=== PATIENT | male | born 1950 | race Caucasian/White ===

== ENCOUNTER 2016-02-15 11:35 | Observation (INO) | payer BC ==
[2016-02-15] MEDS ORDERED: Ondansetron 4 MG/2 ML SDV IV PRN (11:58)
[2016-02-15] MEDS ORDERED: Sodium Chloride 0.9% 10 ML Syringe FLUSH PRN (11:58)
[2016-02-15] MEDS ORDERED: Acetaminophen 325 MG Tab PO PRN (11:58)
[2016-02-15] MEDS ORDERED: Morphine 2 MG/ML Syringe IVPUSH PRN (11:58)
--- NOTE | 2016-02-15 12:09 | PCM.HP ---
H&P History of Present Illness - General Date of Service: 02/15/16 Admit Problem/Dx: Admission Diagnosis/Problem Admission Diagnosis/Problem Chest discomfort nstemi Source of Information: Patient, Provider History Limitations: Reports: No limitations - History of Present Illness Initial Comments - Free Text/Narative: Chief complaint: Chest pain and dyspnea. Present illness: Patient presented to [facility] this morning in urgent care clinic for history of chest pain with exertion and dyspnea on exertion for past three days. Minimal symptoms at rest. No history of any angina or coronary disease in the past. Doesn't history of hypertension and hyperlipidemia. No diabetes. Does not smoke. Family history of coronary disease in father. Medications: See Pap, Diovan HCT, Lipitor, Norvasc, aspirin, fish oil, when necessary Viagra. Intolerance to ventura inhibitors which cause cough. Review of systems: Denies fever denies headache denies any neurologic symptoms denies abdominal pain denies nausea denies vomiting denies dysuria denies peripheral edema. Physical exam: Pulse 90, blood pressure 135/85, afebrile. Alert oriented no acute distress heart and lungs clear to auscultation abdomen soft nontender extremity is warm well perfused without edema. He shows sinus rhythm at 100. There are T-wave inversions inferiorly with downsloping ST segments. Possible anterior septal Q waves. Troponin is 0.268. Assessment and plan: Non-STEMI. [facility] does not have any beds open for immediate transfer. He is currently stable and minimally symptomatic. We will admit for observation on telemetry here. We'll do a serial troponin. We will do bolus Lovenox, Plavix, Lipitor and 5 mg IV dose Toprol. Plan on transfer to [facility] later today with cardiac bed available. H&P Review of Systems - Review of Systems: Review Of Systems: See Below Exam - Exam Exam: See Below - Vital Signs Vital Signs: Last Vital Signs Temp Pulse Resp BP Pulse Ox 98 02/15/16 11:58 *Q Meaningful Use (ADM) - VTE *Q VTE Criteria *Q: - Stroke *Q Stroke Criteria *Q: - AMI *Q AMI Criteria *Q: Problem List Initiated/Reviewed/Updated: Yes Orders Last 24hrs: Active Orders 24 hr Category Date Time Status Admission Status [Patient Status] [ADT] Routine ADT 02/15/16 11:44 Active Patient Status [ADT] Routine ADT 02/15/16 11:58 Ordered Cardiac Monitoring [RC] CONTINUOUS Care 02/15/16 11:59 Ordered Oxygen Therapy [RC] PRN Care 02/15/16 11:58 Ordered Up With Assistance [RC] ASDIRECTED Care 02/15/16 11:58 Ordered VTE/DVT Education [RC] PER UNIT ROUTINE Care 02/15/16 11:58 Ordered Vital Signs [RC] Q4H Care 02/15/16 11:58 Ordered Clear Liquid Diet [DIET] Diet 02/15/16 Lunch Ordered TROPONIN I [CHEM] Timed Lab 02/15/16 14:00 Ordered Acetaminophen [Tylenol] Med 02/15/16 11:58 Ordered 650 mg PO Q4H PRN Clopidogrel [Plavix] Med 02/15/16 12:01 Once 300 mg PO ONETIME ONE Enoxaparin [Lovenox] Med 02/15/16 12:01 Once 100 mg SUBCUT ONETIME ONE Metoprolol Tartrate [Lopressor] Med 02/15/16 12:01 Once 5 mg IVPUSH ONETIME ONE Morphine Med 02/15/16 11:58 Ordered 2 mg IVPUSH Q2H PRN Ondansetron [Zofran] Med 02/15/16 11:58 Ordered 4 mg IV Q6H PRN Sodium Chloride 0.9% [Saline Flush] Med 02/15/16 11:58 Ordered 10 ml FLUSH ASDIRECTED PRN atorvaSTATin [Lipitor] Med 02/15/16 12:01 Once 80 mg PO ONETIME ONE Peripheral IV Insertion Adult [OM.PC] Routine Oth 02/15/16 11:58 Ordered Saline Lock Insert [OM.PC] Routine Oth 02/15/16 11:58 Ordered Resuscitation Status Routine Resus Stat 02/15/16 11:58 Ordered Medication Orders Acetaminophen (Tylenol) 650 mg PO Q4H PRN PRN Reason: Pain (Mild 1-3)/fever Atorvastatin Calcium (Lipitor) 80 mg PO ONETIME ONE Stop: 02/15/16 12:02 Clopidogrel Bisulfate (Plavix) 300 mg PO ONETIME ONE Stop: 02/15/16 12:02 Enoxaparin Sodium (Lovenox) 100 mg SUBCUT ONETIME ONE Stop: 02/15/16 12:02 Metoprolol Tartrate (Lopressor) 5 mg IVPUSH ONETIME ONE Stop: 02/15/16 12:02 Morphine Sulfate (Morphine) 2 mg IVPUSH Q2H PRN PRN Reason: Pain (severe 7-10) Ondansetron HCl (Zofran) 4 mg IV Q6H PRN PRN Reason: Nausea/Vomiting Sodium Chloride (Saline Flush) 10 ml FLUSH ASDIRECTED PRN PRN Reason: Keep Vein Open
[2016-02-15] MEDS ORDERED: atorvaSTATin 40 MG Tab PO ONE (12:30)
[2016-02-15] MEDS ORDERED: Clopidogrel 75 MG Tab PO ONE (12:30)
[2016-02-15] MEDS ORDERED: Metoprolol Tartrate 5 MG/5 ML SDV IVPUSH ONE ×2 (12:30→15:14)
[2016-02-15] MEDS ORDERED: Enoxaparin 100 MG/1 ML Syringe SUBCUT ONE (13:00)
[2016-02-15] MEDS ORDERED: Aspirin 81 MG Tab.EC PO SCH (15:15)
[2016-02-15] MEDS ORDERED: Metoprolol Tartrate 25 MG Tab PO ONE (15:28)
--- NOTE | 2016-02-15 15:28 | PCM.DCSUM1 ---
Discharge Summary - Discharge Data Discharge Date: 02/15/16 Discharge Disposition: DC/Tfer to Acute Hospital 02 Condition: Fair - Discharge Plan Home Medications: Home Meds Aspirin [Halfprin] 81 mg PO BRK 02/15/16 [History] Multivitamin [Multivitamins] 1 each PO DAILY 02/15/16 [History] [place]-3/DHA/Epa/Fish Oil [[place]-3 Fish Oil 1,000 MG Sfgl] 1,000 mg PO BID [History] Sildenafil [Viagra] 100 mg PO BEDTIME PRN 02/15/16 [History] Valsartan/Hydrochlorothiazide [Valsartan-Hctz 320-25 mg Tab] 1 tab PO DAILY 11/21 [History] amLODIPine [Norvasc] 5 mg PO DAILY 02/15/16 [History] atorvaSTATin [Lipitor] 40 mg PO BEDTIME 02/15/16 [History] - Discharge Summary/Plan Comment DC Time >30 min.: Yes (45min speaking with specialist and patient and RN) Discharge Summary/Plan Comment: Patient presented to urgent care clinic earlier this morning complaining of chest pain or shortness of breath with exertion. Started about three days ago. This morning had worse spell while working. Last about 30 minutes. Crushing pain across his chest. Minimal asymptomatic currently but does describe a slight twinge in his left chest. No dyspnea neck arm pain or diaphoresis currently. He does not have any known coronary disease no previous EKG for comparison. His cardiac risk factors include hypertension hyperlipidemia obesity and sleep apnea. He has not had any diabetes in the past. He has not had any stress testing in the past. Family history positive for coronary disease in father around patient's current age. Patient has history of chewing but not smoking tobacco in the past. On arrival to clinic blood pressure 140/74 pulse 97 temperature 7.7 oxygen saturation 95% Or two and oriented male no acute distress heart regular rate and rhythm no murmurs or gallops lungs clear extremity is warm well perfused without edema. Sinus rhythm borderline tachycardia T wave inversions inferiorly with some downsloping ST segments. Initial troponin 0.26, repeat level IV hours later was 0.61 patient's blood pressure little bit elevated on the floor given 5 mg IV metoprolol 2. He was given 100 mg subcu Lovenox at 1 PM today along with 80 mg Lipitor and 300 mg Plavix. Assessment and plan: Non-STEMI. I don't think his ischemia/and infarction is still ongoing, his symptoms are currently minimal and seem non-anginal given the spell that was more severe he describes this morning. KLAUS score is 3-4, he has moderately higher risk. He will be transferred to [place] for internal medicine evaluation and serial monitoring. Probable left heart cath next 24 hours, sooner if acutely symptomatic again. Toprol 25mg PO given prior do d/c. - Patient Data Vitals - Most Recent: Last Vital Signs Temp 36.7 C 02/15/16 13:42 Pulse 72 02/15/16 13:42 Resp 20 02/15/16 13:42 BP 162/88 H 02/15/16 13:42 Pulse Ox 96 02/15/16 13:42 Weight - Most Recent: 102.058 kg Lab Results - Last 24 hrs: Laboratory Results - last 24 hr 02/15/16 Range/Units 14:00 Troponin I 0.610 H* (<=0.056) ng/mL Med Orders - Current: Current Medications Acetaminophen (Tylenol) 650 mg PO Q4H PRN PRN Reason: Pain (Mild 1-3)/fever Amlodipine Besylate (Norvasc) 5 mg PO DAILY HANNA Aspirin (Halfprin) 81 mg PO BRK HANNA Atorvastatin Calcium (Lipitor) 40 mg PO BEDTIME HANNA Morphine Sulfate (Morphine) 2 mg IVPUSH Q2H PRN PRN Reason: Pain (severe 7-10) Non-Formulary Medication ([place]-3/Dha/Epa/Fish Oil [[place]-3 Fish Oil 1,000 Mg Sfgl]) 1,000 mg PO BID HANNA Non-Formulary Medication (Valsartan/Hydrochlorothiazide [Valsartan-Hctz 320-25 Mg Tab]) 1 tab PO DAILY HANNA Ondansetron HCl (Zofran) 4 mg IV Q6H PRN PRN Reason: Nausea/Vomiting Sodium Chloride (Saline Flush) 10 ml FLUSH ASDIRECTED PRN PRN Reason: Keep Vein Open Discontinued Medications Atorvastatin Calcium (Lipitor) 80 mg PO ONETIME ONE Stop: 02/15/16 12:31 Last Admin: 02/15/16 12:40 Dose: 80 mg Clopidogrel Bisulfate (Plavix) 300 mg PO ONETIME ONE Stop: 02/15/16 12:31 Last Admin: 02/15/16 12:40 Dose: 300 mg Enoxaparin Sodium (Lovenox) 100 mg SUBCUT ONETIME ONE Stop: 02/15/16 13:01 Last Admin: 02/15/16 12:53 Dose: 100 mg Metoprolol Tartrate (Lopressor) 5 mg IVPUSH ONETIME ONE Stop: 02/15/16 12:31 Last Admin: 02/15/16 12:40 Dose: 5 mg Metoprolol Tartrate (Lopressor) 5 mg IVPUSH STAT ONE Stop: 02/15/16 15:15 Last Admin: 02/15/16 15:21 Dose: 5 mg *Q Meaningful Use (DIS) - VTE *Q VTE Criteria *Q: - Stroke *Q Stroke Criteria *Q: - AMI *Q AMI Criteria *Q:
[2016-02-15 15:36] VITALS: BP 155/89
[2016-02-15] MEDS ORDERED: Fish Oil/Omega-3 Fatty Acids 1 Gm Cap PO SCH (20:00)
[2016-02-15] MEDS ORDERED: atorvaSTATin 40 MG Tab PO SCH (20:00)
[2016-02-16] MEDS ORDERED: Hydrochlorothiazide 25 MG Tab PO SCH (08:00)
[2016-02-16] MEDS ORDERED: amLODIPine 5 MG Tab PO SCH (08:00)
[2016-02-16] MEDS ORDERED: Valsartan 160 MG Tab PO SCH (08:00)
== END 2016-02-15 16:00 | disposition short-term general hospital (02) ==
LOC: VM.MS 11:44
PROVIDERS: ADMIT Family Medicine; ATTEND Family Medicine
DX: I21.4 Non-ST elevation (NSTEMI) myocardial infarction (principal); I10 Essential (primary) hypertension; E78.5 Hyperlipidemia, unspecified; G47.30 Sleep apnea, unspecified; Z79.82 Long term (current) use of aspirin; Z79.899 Other long term (current) drug therapy
CPT/HCPCS: 36415; 84484; 96372; 96374; 96376; A9270; G0378; J1650; J3490

== ENCOUNTER 2022-09-14 08:20 | Day surgery (SDC) | payer MEDICARE, BC ==
[2022-09-14] MEDS: Lactated Ringers 1,000 ML IV SCH (08:35)
[2022-09-14] MEDS ORDERED: fentaNYL 100 MCG/2 ML SDV ONE (09:39)
[2022-09-14] MEDS ORDERED: Propofol 200 MG/20 ML SDV ONE (09:40)
[2022-09-14] MEDS ORDERED: Midazolam 1 MG/ML 2 ML SDV ONE (09:40)
[2022-09-14 11:04] VITALS: BP 159/77; PULSE 56
== END 2022-09-14 11:20 | disposition home or self-care (01) ==
LOC: VM.SDS 08:20
PROVIDERS: ATTEND Family Medicine
DX: Z12.11 Encounter for screening for malignant neoplasm of colon (principal); D12.2 Benign neoplasm of ascending colon; D12.3 Benign neoplasm of transverse colon; K57.30 Diverticulosis of large intestine without perforation or abscess without bleeding; D12.0 Benign neoplasm of cecum; E78.00 Pure hypercholesterolemia, unspecified; I10 Essential (primary) hypertension; I25.10 Atherosclerotic heart disease of native coronary artery without angina pectoris; E66.9 Obesity, unspecified; M19.90 Unspecified osteoarthritis, unspecified site; G47.33 Obstructive sleep apnea (adult) (pediatric); Z98.890 Other specified postprocedural states; Z80.0 Family history of malignant neoplasm of digestive organs
CPT/HCPCS: 00812; 88305; J2250; J2704; J3010; J7120